=== PATIENT | male | born 1995 | race Hispanic/Latino ===

== ENCOUNTER 2021-03-11 20:48 | Emergency (ER) | payer OTHER ==
[~2021-03-11] VITALS: Ht 175.3 cm; Wt 113.4 kg
[2021-03-11 20:49] VITALS: BP 147/82
[2021-03-11] MEDS ORDERED: CLINDAMYCIN 150 MG CAP ONE (21:17)
[2021-03-11] MEDS ORDERED: ACETAMINOPHEN WITH CODEINE 1 TAB TAB ONE (21:17)
[2021-03-11] MEDS ORDERED: CLINDAMYCIN 150 MG CAP PO ONE (21:30)
[2021-03-11] MEDS ORDERED: ACETAMINOPHEN WITH CODEINE 1 TAB TAB PO PRN (21:30)
[2021-03-11] MEDS ORDERED: CLIN-141 PO (21:36)
[2021-03-11] MEDS ORDERED: IBUP-1552 PO (21:36)
== END 2021-03-11 21:47 | disposition home or self-care (01) ==
LOC: EDH 20:48
DX: K02.9 Dental caries, unspecified (principal); Z79.1 Long term (current) use of non-steroidal anti-inflammatories (NSAID)